=== PATIENT | male | born 1985 | race Caucasian/White ===

== ENCOUNTER 2018-11-06 12:42 | Emergency (ER) | payer BC ==
[~2018-11-06] VITALS: Ht 188 cm; Wt 177.4 kg
[2018-11-06 12:48] VITALS: BP_SYST 167
[2018-11-06 15:02] VITALS: BP_SYST 113
== END 2018-11-06 15:02 | disposition home or self-care (01) ==
LOC: SED 12:42
DX: F41.9 Anxiety disorder, unspecified (principal); F43.10 Post-traumatic stress disorder, unspecified; I10 Essential (primary) hypertension
CPT/HCPCS: 71045; 93005; 99283

== ENCOUNTER 2019-01-03 23:27 | Emergency (ER) | payer BC ==
[~2019-01-03] VITALS: Ht 188 cm; Wt 170.6 kg
[2019-01-03 23:30] VITALS: BP_SYST 147
--- NOTE | 2019-01-03 23:30 | NUR ---
Placed in room 8 . Placed on direct care specialist, blood pressure machine and pulse oximeter. To gown for exam. Side rails up. Report given to ANGELA HOANG.
--- NOTE | 2019-01-03 23:48 | NUR ---
Pt is C/O increased anxiety. Pt was discharged from the ER a few hours ago with Bronchitis and Pleural Effusion. 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 Pt took one dose an hour ago with no relief. Pt states he feels his heart racing. VSS will continue to monitor.
--- NOTE | 2019-01-03 23:55 | NUR ---
MARTINEZ Newman at bedside examining patient.
[2019-01-04] MEDS ORDERED: ALPRAZolam 0.25 MG TABLET PO ONE
[2019-01-04 00:36] VITALS: BP_SYST 147
--- NOTE | 2019-01-04 00:37 | NUR ---
Patient given written and verbal discharge instructions and verbalizes understanding. ER MD discussed with patient the results and treatment provided. Patient in stable condition. ID arm band removed. Patient educated on pain management and to follow up with PMD. Pain Scale 0/10. Opportunity for questions provided and answered. Medication side effect fact sheet provided.
== END 2019-01-04 00:36 | disposition home or self-care (01) ==
LOC: SED 23:27
DX: F41.9 Anxiety disorder, unspecified (principal); F43.10 Post-traumatic stress disorder, unspecified; I10 Essential (primary) hypertension
CPT/HCPCS: 99283; 99284